=== PATIENT | male | born 1955 | race Caucasian/White ===

== ENCOUNTER 2017-02-10 22:39 | Emergency (ER) | payer MEDICARE, OTHER ==
[2017-02-10 23:08] LABS: BASO % 0.3 % (0.2-1.2); EOS # 0.4 10_X3_uL (0.0-0.5); EOS % 6.4 % (0.8-7.0); GRAN # 3.1 10_X3_uL (1.8-5.4); GRAN % 49.8 % (34.0-67.9); HEMATOCRIT 44.5 % (40-51); HEMOGLOBIN 15.6 g/dL (13.7-17.5); LYMPH # 2.3 10_X3_uL (1.3-3.6); MEAN CORPUSCULAR HEMOGLOBIN 31.6 pg (27.0-33.0); MEAN CORPUSCULAR HGB CONC 35.1 g/dL (32.0-36.0); MEAN CORPUSCULAR VOLUME 90.1 fL (79-92); MEAN PLATELET VOLUME 10.7 fl (7.5-11.5); MONO # 0.5 10_X3_uL (0.3-0.8); MONO % 7.5 % (5.3-12.2); PLATELET COUNT 180 x10_3/uL (163-337); RED BLOOD COUNT 4.94 x10_6/uL (4.6-6.1); RED CELL DISTRIBUTION WIDTH 13.2 % (11.6-14.4); WHITE BLOOD COUNT 6.3 x10_3/uL (4.2-9.1)
[2017-02-10 23:25] LABS: ALBUMIN 4.1 gm/dL (3.4-5.0); ALKALINE PHOSPHATASE 61 U/L (50-136); ALT/SGPT 23 U/L (7.53-40.17); AST/SGOT 19 U/L (6.66-35.34); BILIRUBIN,TOTAL 0.22 mg/dL (0.0-1.0); BLOOD UREA NITROGEN 15 mg/dL (7-18); CALCIUM 8.9 mg/dL (8.7-10.7); CARBON DIOXIDE 25 mmol/L (21-32); CREATINE KINASE 63 U/L (35-232); CREATININE 0.8 mg/dL (0.6-1.3); GLUCOSE,RANDOM 165 mg/dL (70-99); POTASSIUM 3.9 mmol/L (3.5-5.1); SODIUM 137 mmol/L (136-145); TOTAL PROTEIN 6.9 gm/dL (6.4-8.2)
== END 2017-02-11 00:34 | disposition home or self-care (01) ==
LOC: ER 22:39
PROVIDERS: Emergency Medicine
DX: M54.10 Radiculopathy, site unspecified (principal); G40.909 Epilepsy, unspecified, not intractable, without status epilepticus; Z95.5 Presence of coronary angioplasty implant and graft; F17.210 Nicotine dependence, cigarettes, uncomplicated; Z79.899 Other long term (current) drug therapy; Z79.82 Long term (current) use of aspirin
CPT/HCPCS: 36415; 71010; 72040; 80053; 82550; 82553; 85025; 93005; 96372; 96374; 99070; 99283-25; 99284